=== PATIENT | male | born 1960 | race Caucasian/White ===

== ENCOUNTER → 2020-08-08 15:53 | Outpatient (CLI) | payer OTHER, SELFPAY ==
--- NOTE | 2020-08-08 16:15 | DI.ECHO.S_ITS ---
:Reason For Study: ENCOUNTER FOR GENERAL ADULT EXAMINATION : :Ordering Physician: KRISTOPHER : :ADENIKE Performed By: Kalie Everett : :Referring: ADENIKE SUMMERS : + + Interpretation Summary The left ventricle is normal in size and wall thickness. Left ventricular systolic function appears normal without focal wall motion abnormalities. The ejection fraction is estimated to be 60-65%. Diastolic parameters suggest probable normal left ventricular diastolic function and normal filling pressures. The right ventricle is borderline dilated. The right ventricular systolic function is normal. Both atria are normal in size. There is mild mitral regurgitation. There is no other significant valvular heart disease. The ascending aorta is mildly enlarged. Procedure: A two-dimensional transthoracic echocardiogram with color flow and Doppler was performed. The study quality was technically adequate. There is no prior echocardiogram noted for this patient. Left Ventricle: The left ventricle is normal in size and wall thickness. Left ventricular systolic function appears normal without focal wall motion abnormalities. The ejection fraction is estimated to be 60-65%. Diastolic parameters suggest probable normal left ventricular diastolic function and normal filling pressures. Right Ventricle: The right ventricle is borderline dilated. The right ventricular systolic function is normal. Atria: Both atria are normal in size. There is no Doppler evidence for an interatrial shunt. Mitral Valve: The mitral valve is normal in structure and function. There is mild mitral regurgitation. Aortic Valve: The aortic valve is trileaflet. The aortic valve opens well. There is no aortic valve stenosis. No aortic regurgitation is present. Tricuspid Valve: The tricuspid valve is normal in structure and function. There is trace tricuspid regurgitation. Pulmonic Valve: The pulmonic valve is not well visualized. There is no pulmonic valvular regurgitation. There is no other significant valvular heart disease. Great Vessels: The aortic root is normal size. The ascending aorta is mildly enlarged. The IVC is of normal diameter and collapses greater than 50% with a sniff. This suggests a low right atrial pressure of 3 mm Hg. Pericardium/ Pleura There is no pericardial effusion. There is no pleural effusion MMode/2D Measurements & Calculations LVIDd: 5.7 cm LVOT diam: 2.3 cm LVIDs: 3.6 cm Ao root diam: 3.5 cm FS: 36.2 % asc Aorta Diam: 3.6 cm EPSS: 0.68 cm Ao Arch Diam (Prox Trans): 3.0 cm IVSd: 0.92 cm LVPWd: 1.1 cm LV dailey. diameter/BSA (cm/m^2): 2.3 LV sys. diameter/BSA (cm/m^2): 1.5 LA A2 area: 19.2 cm2 RA long axis: 5.5 cm LA A4 area: 18.5 cm2 RA area: 21.0 cm2 LA length (vol): 6.0 cm RA vol: 68.7 ml LA vol: 50.3 ml RA : 28.0 ml/m2 LA vol index: 20.5 ml/m2 IVC diam: 1.8 cm RVD1 (basal): 4.2 cm TAPSE: 2.8 cm Doppler Measurements & Calculations Ao V2 max: 148.5 cm/sec LVOT Max Aiden: 118.7 cm/sec Ao V2 mean: 97.3 cm/sec LV V1 max P.6 mmHg Ao max P.8 mmHg LV V1 VTI: 24.3 cm Ao mean P.5 mmHg CONNIE(I,D): 3.6 cm2 Ao V2 VTI: 28.1 cm CONNIE(V,D): 3.3 cm2 sev ratio: 0.86 CONNIE indexed to BSA (cm^2/m^2): 1.4 MV E max aiden: 101.8 cm/sec PA V2 max: 111.9 cm/sec MV A max aiden: 93.3 cm/sec PA V2 mean: 81.3 cm/sec MV E/A: 1.1 PA mean P.9 mmHg Med Peak E' Aiden: 9.3 cm/sec PA pr(Accel): 37.9 mmHg E/E' med: 10.9 Lat Peak E' Aiden: 11.3 cm/sec E/E' lat: 9.0 E/e' average: 9.9 MV dec time: 0.25 sec SV(LVOT): 99.9 ml Reading Physician:06:13 PM
== END ==
PROVIDERS: Visit Provider Physician Assistant
DX: Z00.00 Encounter for general adult medical examination without abnormal findings (principal)
CPT/HCPCS: 93005; 93306